=== PATIENT | female | born 2000 | race Caucasian/White ===

== ENCOUNTER 2019-07-13 07:49 | Emergency (ER) | payer OTHER, MEDICAID ==
[~2019-07-13] VITALS: Ht 162.6 cm; Wt 61.2 kg
[~2019-07-13 07:49] MED LIST: NOHOMEMEDICATIONS
[2019-07-13] MEDS ORDERED: BIRTH CONTROL PO (08:02)
[2019-07-13 09:08] VITALS: BP 134/80
== END 2019-07-13 09:09 | disposition home or self-care (01) ==
LOC: M.ERS 07:49
DX: S06.0X0A Concussion without loss of consciousness, initial encounter (principal); Z77.22 Contact with and (suspected) exposure to environmental tobacco smoke (acute) (chronic); W22.8XXA Striking against or struck by other objects, initial encounter; Y92.89 Other specified places as the place of occurrence of the external cause; Y93.89 Activity, other specified; Y99.8 Other external cause status

== ENCOUNTER 2021-06-28 16:20 | Emergency (ER) | payer OTHER ==
[~2021-06-28] VITALS: Ht 162.6 cm; Wt 69.8 kg
[~2021-06-28 16:20] MED LIST changes: +BIRTH CONTROL PO
[2021-06-28] MEDS ORDERED: TOPROL XL25 MG PO (16:30)
[2021-06-28 17:11] LABS: URINE BILIRUBIN NEGATIVE (Negative); URINE BLOOD NEGATIVE (Negative); URINE CLARITY CLEAR; URINE COLOR YELLOW; URINE GLUCOSE-RANDOM NEGATIVE (Negative); URINE KETONES NEGATIVE (Negative); URINE LEUKOCYTES-REFLEX NEGATIVE (Negative); URINE NITRITE-REFLEX NEGATIVE (Negative); URINE PROTEIN NEGATIVE (Negative); URINE UROBILINOGEN 0.2 E.U./dl (0.2-1.0)
[2021-06-28 17:12] LABS: ABSOLUTE EOSINOPHILS 0.1 thou/uL (0.0-0.7); ABSOLUTE LYMPHOCYTES 1.9 thou/uL (0.8-5.3); ABSOLUTE MONOCYTES 0.6 thou/uL (0.0-1.2); ABSOLUTE NEUTROPHILS 4.9 thou/uL (1.6-8.1); BASOPHILS 0.4 %; HEMATOCRIT 36.9 % (37.0-47.0); HEMOGLOBIN 11.9 gm/dL (12.0-15.0); LYMPHOCYTES 25.5 %; MCH 28.5 pg (26.0-34.0); MCHC 32.4 g/dL (28.0-37.0); MONOCYTES 7.9 %; MPV 6.9 fl. (7.2-11.1); NUCLEATED RBCS 0 /100WBC; PLATELET COUNT* 330 thou/uL (150-400); POLYS 65.2 %; RDW-CV 14.3 % (10.5-14.5); WBC 7.5 thou/uL (4.0-11.0)
[2021-06-28 17:19] LABS: CALCIUM 8.9 mg/dL (8.5-10.1); CREATININE 0.8 mg/dL (0.6-1.3)
[2021-06-28 17:46] VITALS: BP 135/81
--- NOTE | 2021-06-29 10:04 | EKG ---
[place] [address] ELECTROCARDIOGRAM REPORT Name: DELROY TAM Room: [facility]#: [id number] Admission: 06/28/21 Attend Phys: Discharge: 06/28/21 Date of : 89 Date of Service: 06/28/21 1627 Report #: [id number] THIS REPORT FOR: //name// [facility] ED Test Date: 2021-06-28 Test Time: 16:27:35 Pat Name: DELROY TAM Department: Room: Gender: F Property Management Specialist: : [id number] Requested By: Nawaf Carreon Order Number: [id number] MD: Chad Hanson Measurements Intervals [place] Rate: 79 P: 65 LA: 126 QRS: 77 QRSD: 90 T: 46 QT: 346 QTc: 397 Interpretive Statements Sinus rhythm RSR' in V1 or V2, probably normal variant Borderline repolarization abnormality Baseline wander in lead(s) II,III,aVR,aVL,aVF,V2,V3,V4,V5,V6 No previous ECG available for comparison Electronically Signed On 06-29-2021 10:04:01 CDT by Chad Hanson [email or web address] <ELECTRONICALLY SIGNED> By: Chad Hanson MD, [facility] 06/29/21 1004 1627 1627 Chad Hanson MD, [facility] /EPI
== END 2021-06-28 17:47 | disposition home or self-care (01) ==
LOC: M.ERS 16:20
PROVIDERS: Nurse Practitioner Psychiatric/Mental Health
DX: D64.9 Anemia, unspecified (principal); Z20.822 Contact with and (suspected) exposure to COVID-19; R55 Syncope and collapse; Z88.1 Allergy status to other antibiotic agents; Z77.22 Contact with and (suspected) exposure to environmental tobacco smoke (acute) (chronic)